=== PATIENT | male | born 1970 | race Caucasian/White ===

== ENCOUNTER 2019-04-16 03:46 | Emergency (ER) | payer OTHER, BC ==
[~2019-04-16] VITALS: Ht 177.8 cm; Wt 88.5 kg
[~2019-04-16 03:46] MED LIST: ALBU90OI6 INH; DAYQUIL; HYDACE5 PO; INDO50 PO; LEVFLO500 PO; NAPR550 PO; OXYACE5T PO; RXNAPNA550 PO; RXOXYACE PO
== END 2019-04-16 05:30 | disposition home or self-care (01) ==
LOC: ER 03:46
DX: S60.450A Superficial foreign body of right index finger, initial encounter (principal); L08.9 Local infection of the skin and subcutaneous tissue, unspecified; F17.210 Nicotine dependence, cigarettes, uncomplicated; Z79.899 Other long term (current) drug therapy; W45.8XXA Other foreign body or object entering through skin, initial encounter
CPT/HCPCS: 10120; 90471; 90714; 99283-25; A9270

== ENCOUNTER 2019-08-05 07:15 | Emergency (ER) | payer OTHER, BC ==
[~2019-08-05] VITALS: Ht 180.3 cm; Wt 86.2 kg
[2019-08-05] MEDS ORDERED: Chantix0.5 MG (07:54)
[2019-08-05] MEDS ORDERED: Norco 5-325 Ta1 EACH PO (09:02)
[2019-08-05] MEDS ORDERED: CIPRO500 M1 PO (09:02)
== END 2019-08-05 09:17 | disposition home or self-care (01) ==
LOC: ER 07:15
DX: S67.191A Crushing injury of left index finger, initial encounter (principal); S62.631A Displaced fracture of distal phalanx of left index finger, initial encounter for closed fracture; W23.0XXA Caught, crushed, jammed, or pinched between moving objects, initial encounter; F17.210 Nicotine dependence, cigarettes, uncomplicated; Z79.899 Other long term (current) drug therapy
CPT/HCPCS: 29130; 73130; 99283-25

== ENCOUNTER 2020-10-17 06:48 | Day surgery (SDC) | payer BC ==
[~2020-10-17] VITALS: Ht 180.3 cm; Wt 88.1 kg
[~2020-10-17 06:48] MED LIST changes: +CIPRO500 M1 PO; +Chantix0.5 MG; +Norco 5-325 Ta1 EACH PO
== END 2020-10-17 09:11 | disposition home or self-care (01) ==
LOC: ORSCSDS 06:48
PROVIDERS: Student in an Organized Health Care Education/Training Program
PROC: 0DBH8ZX Excision of Cecum, Via Natural or Artificial Opening Endoscopic, Diagnostic (ICD-10-PCS; principal; 2020-10-17 08:00)
PROC: 0DBL8ZX Excision of Transverse Colon, Via Natural or Artificial Opening Endoscopic, Diagnostic (ICD-10-PCS; principal; 2020-10-17 08:00)
PROC: 0DBN8ZX Excision of Sigmoid Colon, Via Natural or Artificial Opening Endoscopic, Diagnostic (ICD-10-PCS; principal; 2020-10-17 08:00)
DX: Z12.11 Encounter for screening for malignant neoplasm of colon (principal); Z86.010 Personal history of colon polyps; D12.5 Benign neoplasm of sigmoid colon; D12.3 Benign neoplasm of transverse colon; D12.0 Benign neoplasm of cecum; K57.30 Diverticulosis of large intestine without perforation or abscess without bleeding; K64.8 Other hemorrhoids; F17.210 Nicotine dependence, cigarettes, uncomplicated
CPT/HCPCS: 88305; J0330; J0461; J2405; J2704; J7120

== ENCOUNTER 2025-01-18 18:06 | Emergency (ER) | payer BC ==
[~2025-01-18] VITALS: Ht 172.7 cm; Wt 81.7 kg
[2025-01-18 18:33] VITALS: BP 119/99
[2025-01-18 21:25] LABS: BASOPHILS ABSOLUTE AUTO 0.04 K/mm3 (0.00-0.23); BASOPHILS PERCENT AUTO 0 % (0-2); EOSINOPHILS ABSOLUTE AUTO 0.14 K/mm3 (0.00-0.68); EOSINOPHILS PERCENT AUTO 1 % (0-6); Hematocrit 38.6 % (37.0-53.0); Hemoglobin 12.8 g/dL (13.5-17.5); IMMATURE GRAN ABSOLUTE AUTO 0.05 K/mm3 (0.00-0.10); IMMATURE GRAN PERCENT AUTO 0 % (0-1); LYMPHOCYTES ABSOLUTE AUTO 2.97 K/mm3 (0.84-5.20); LYMPHOCYTES PERCENT AUTO 24 % (21-46); MONOCYTES ABSOLUTE AUTO 1.13 K/mm3 (0.16-1.47); MONOCYTES PERCENT AUTO 9 % (4-13); Mean Corpuscular HGB Conc 33.2 g/dL (31.5-36.5); Mean Corpuscular Volume 86 fL (80-100); NEUTROPHILS ABSOLUTE AUTO 8.13 K/mm3 (1.96-9.15); NEUTROPHILS PERCENT AUTO 65 % (41-73); NRBC ABSOLUTE 0.00 K/mm3 (0.00-0.02); NRBC Auto 0.0 /100 WBC (0.0-0.2); Platelet Count 288 K/mm3 (150-400); RDW Coefficient Variation 15.0 % (11.7-14.2); RDW Standard Deviation 47.5 fL (35.1-46.3)
[2025-01-18 21:41] LABS: Alanine Aminotransfer (ALT/SGP 18.0 U/L (12-78); Albumin, Blood 3.6 g/dL (3.4-5.0); Albumin/Globulin Ratio 0.9 (0.8-1.8); Anion Gap 7.0 mmol/L (3-11); Aspartate Aminotrans (AST/SGOT 13.0 U/L (12-37); Bilirubin, Total 0.4 mg/dL (0.1-1.0); Blood Urea Nitrogen 16.0 mg/dL (8-24); CO2, Blood 24.0 mmol/L (21-32); Calcium, Blood 8.3 mg/dL (8.5-10.1); Chloride, Blood 108.0 mmol/L (98-108); Creatinine, Blood 1.32 mg/dL (0.60-1.20); Globulin, Blood 4.2 g/dL (2.2-4.0); Glucose, Blood 81.0 mg/dL (70-99); Potassium, Blood 4.4 mmol/L (3.5-5.5); Sodium, Blood 135.0 mmol/L (136-145); Total Protein, Blood 7.8 g/dL (6.4-8.2)
[2025-01-19] MEDS ORDERED: SULFAMETHOXAZO1 EAC1 PO (03:55)
[2025-01-19] MEDS ORDERED: NICO21TP TOP (17:26)
== END 2025-01-18 22:09 | disposition left against medical advice (07) ==
LOC: ER 18:06
PROVIDERS: Student in an Organized Health Care Education/Training Program
DX: L08.9 Local infection of the skin and subcutaneous tissue, unspecified (principal); Z53.21 Procedure and treatment not carried out due to patient leaving prior to being seen by health care provider
CPT/HCPCS: 73140; 80053; 85025

== ENCOUNTER 2025-01-19 01:24 | Emergency (ER) | payer BC ==
[~2025-01-19] VITALS: Ht 177.8 cm; Wt 89.6 kg
[2025-01-19] MEDS ORDERED: SULFAMETHOXAZO1 EAC1 PO (03:55)
[2025-01-19] MEDS ORDERED: HYDROmorphone HCl/Pf 1MG SYR IV ONE ×2 (03:55→05:25)
[2025-01-19 05:04] LABS: BASOPHILS ABSOLUTE AUTO 0.04 K/mm3 (0.00-0.23); BASOPHILS PERCENT AUTO 0 % (0-2); EOSINOPHILS ABSOLUTE AUTO 0.18 K/mm3 (0.00-0.68); EOSINOPHILS PERCENT AUTO 2 % (0-6); Hematocrit 36.6 % (37.0-53.0); Hemoglobin 12.7 g/dL (13.5-17.5); IMMATURE GRAN ABSOLUTE AUTO 0.03 K/mm3 (0.00-0.10); IMMATURE GRAN PERCENT AUTO 0 % (0-1); LYMPHOCYTES ABSOLUTE AUTO 2.78 K/mm3 (0.84-5.20); LYMPHOCYTES PERCENT AUTO 28 % (21-46); MONOCYTES ABSOLUTE AUTO 1.14 K/mm3 (0.16-1.47); MONOCYTES PERCENT AUTO 12 % (4-13); Mean Corpuscular HGB Conc 34.7 g/dL (31.5-36.5); Mean Corpuscular Volume 85 fL (80-100); NEUTROPHILS ABSOLUTE AUTO 5.78 K/mm3 (1.96-9.15); NEUTROPHILS PERCENT AUTO 58 % (41-73); NRBC ABSOLUTE 0.00 K/mm3 (0.00-0.02); NRBC Auto 0.0 /100 WBC (0.0-0.2); Platelet Count 291 K/mm3 (150-400); RDW Coefficient Variation 15.1 % (11.7-14.2); RDW Standard Deviation 46.5 fL (35.1-46.3)
[2025-01-19] MEDS ORDERED: Ketorolac Tromethamine 15mg Vial IV ONE (05:25)
[2025-01-19] MEDS ORDERED: CefTRIAXone Sodium 1,000 MG in NS 100 ML IV ONE ×2 (05:25→06:40)
[2025-01-19] MEDS ORDERED: Vancomycin (Pharmacy Consult) IV PRN (05:25)
[2025-01-19 05:40] LABS: Alanine Aminotransfer (ALT/SGP 17.0 U/L (12-78); Albumin, Blood 3.2 g/dL (3.4-5.0); Albumin/Globulin Ratio 0.8 (0.8-1.8); Anion Gap 9.0 mmol/L (3-11); Aspartate Aminotrans (AST/SGOT 28.0 U/L (12-37); Bilirubin, Total 0.5 mg/dL (0.1-1.0); Blood Urea Nitrogen 15.0 mg/dL (8-24); CO2, Blood 23.0 mmol/L (21-32); Calcium, Blood 8.1 mg/dL (8.5-10.1); Chloride, Blood 108.0 mmol/L (98-108); Creatinine, Blood 1.01 mg/dL (0.60-1.20); Globulin, Blood 4.0 g/dL (2.2-4.0); Glucose, Blood 112.0 mg/dL (70-99); Potassium, Blood 4.0 mmol/L (3.5-5.5); Sodium, Blood 136.0 mmol/L (136-145); Total Protein, Blood 7.2 g/dL (6.4-8.2)
[2025-01-19] MEDS ORDERED: OxyCODONE 5 mg/Acetamin 325 mg TABLET PO PRN (05:55)
[2025-01-19] MEDS ORDERED: NS 1,000 ML IV SCH (06:00)
[2025-01-19] MEDS ORDERED: Vancomycin (Pharmacy Consult) IV SCH (06:00)
[2025-01-19] MEDS ORDERED: Lactobacil 2-S.Thermo-Bifido 1 1 Cap PO SCH (09:00)
[2025-01-19] MEDS ORDERED: NICO21TP TOP (17:26)
[2025-01-19 17:30] VITALS: BP 141/85
[2025-01-20] MEDS ORDERED: CefTRIAXone Sodium 2,000 MG in NS 100 ML IV SCH (06:00)
[2025-01-20] MEDS ORDERED: Bupivacaine 0.5% HCl 5 MG/ML 30MLVIAL ONE (11:49)
== END 2025-01-19 17:32 | disposition home or self-care (01) ==
LOC: ER 01:24 → ERHOLD 01:25 → EDBEDREQTM 06:05
PROVIDERS: Student in an Organized Health Care Education/Training Program
DX: S60.131A Contusion of right middle finger with damage to nail, initial encounter (principal); M86.9 Osteomyelitis, unspecified; Z79.899 Other long term (current) drug therapy; F17.210 Nicotine dependence, cigarettes, uncomplicated; X58.XXXA Exposure to other specified factors, initial encounter
CPT/HCPCS: 80053; 85025; 87040; 96361; 96365; 96366; 96367; 96375; 96376; 99284; A9270; G0378; J0696; J1171; J1885; J3373; J7030; J7040; J7050

== ENCOUNTER 2025-01-20 13:00 | Day surgery (SDC) | payer BC ==
[~2025-01-20] VITALS: Ht 177.8 cm; Wt 85.4 kg
[2025-01-20] VITALS (7 sets, daily range): BP systolic 112–130; BP diastolic 65–104
[~2025-01-20 13:00] MED LIST changes: +NICO21TP TOP; +SULFAMETHOXAZO1 EAC1 PO
[2025-01-20] MEDS ORDERED: CeFAZolin Sodium 2,000 MG in NS 100 ML IV SCH (13:10)
[2025-01-20] MEDS ORDERED: FentaNYL Citrate 50 MCG/ML 2 ML Injection ONE (13:33)
[2025-01-20] MEDS ORDERED: Midazolam HCl 1MG / ML 2ML Vial ONE (13:33)
[2025-01-20] MEDS ORDERED: Bupivacaine 0.5% HCl 5 MG/ML 30MLVIAL INJ ONE (13:46)
[2025-01-20] MEDS ORDERED: Ketorolac Tromethamine 30mg Vial ONE (14:00)
--- NOTE | 2025-01-20 14:59 | NUR ---
DR. BROWN REVIEWED D/C INTSTRUCTIONS AT LENGTH W/PT. WILL CALL RX FOR ABX TO PHARM. OTC FOR POST OP PAIN CONTROL Patient up to Ambulate independently. Gait steady. Discharge instructions reviewed with patient. Patient verbalizes understanding. Copy given to patient to take home. Discharged via wheelchair to private car for ride home.
== END 2025-01-20 14:55 | disposition home or self-care (01) ==
LOC: ORSCMMR 13:00 → ORD 13:00 → ORSCMMR 13:02 → ORD 13:02 → ORSCMMR 14:55
PROVIDERS: Orthopaedic Surgery Sports Medicine
PROC: 0X6Q0Z3 Detachment at Right Middle Finger, Low, Open Approach (ICD-10-PCS; principal; 2025-01-20 14:00)
DX: M86.141 Other acute osteomyelitis, right hand (principal); F17.210 Nicotine dependence, cigarettes, uncomplicated
CPT/HCPCS: 87070; 87147; 87205; 88305; 88311; J0690; J1885; J2250; J2704; J3010; J7120